=== PATIENT | female | born 1935 | race Caucasian/White ===

== ENCOUNTER → 2020-04-30 | Day surgery (SDC) | payer MEDICARE, OTHER ==
[2020-04-25 10:40] LABS: BASOPHILS % 0.4 % (0.0-1.0); EOSINOPHILS # (AUTO) 0.1 (0.0-0.4); EOSINOPHILS % 1.5 % (0.0-6.0); HEMATOCRIT 36.3 % (34.2-44.1); LYMPHOCYTES # (AUTO) 1.2 (1.0-3.2); LYMPHOCYTES % 16.4 % (18.0-39.1); MEAN CORPUSCULAR HEMOGLOBIN 27.5 pg (28-32); MEAN CORPUSCULAR HGB CONC 33.1 g/dL (31-35); MEAN CORPUSCULAR VOLUME 83.1 fL (81-99); MONOCYTES # (AUTO) 0.6 (0.2-0.8); MONOCYTES % 7.3 % (4.4-11.3); NEUTROPHILS # (AUTO) 5.5 (2.1-6.9); PLATELET COUNT 198 x10e3/uL (140-360); RED BLOOD COUNT 4.37 x10e6/uL (3.6-5.1); RED CELL DISTRIBUTION WIDTH 13.2 % (11.7-14.4)
[~2020-04-30] MED LIST: ARMOUR THYROID60 MG PO; ATROVENT HFA12.9 GM INH; CARVEDILOL12.5 MG PO; ESTRADIOL1 MG PO; FENTANYL CITRATE/PF 100MCG/2 ML INJ ONE; GLYBURIDE5 MG PO; HYOSCYAMINE 0.125 MG TAB ONE; LIDOCAINE HCL 2% LOCAL INJ 5 ML SDV VIAL INJ ONE; LOVASTATIN40 MG PO; PROGESTERONE100 MG PO; PROPOFOL IV EMULSION 10 MG/ML 20 ML VIAL ONE; SYMBICORT 16010.2 GM INH; TRIBENZOR 40-11 EAC1 PO; aspirin PO
[2020-04-30 12:10] VITALS: BP 110/57
--- NOTE | 2020-04-30 14:29 | Operative Report ---
DATE OF PROCEDURE: 04/30/2020 SURGEON: Christian Garcia MD PROCEDURE: Colonoscopy with polypectomy. INDICATIONS FOR COLONOSCOPY: Surveillance colonoscopy, personal history of several large polyps removed on recent colonoscopy. The patient is undergoing a colonoscopy to remove any residual polyps/polypoid tissue. MEDICATIONS: The patient was done under MAC. Please see anesthesiologist's note. PROCEDURE IN DETAIL: With the patient in left lateral decubitus position, a flexible fiberoptic Olympus gastroscope was introduced into the rectum and advanced to the cecum with some difficulty through a sharply angulated and fixed sigmoid colon. The scope was then withdrawn slowly. Whatever was visualized the mucosa overlying the cecum appeared to be within normal limits. An approximately 1.2 cm sessile polypoid lesion was noted in the distal ascending colon that was removed per hot snare polypectomy and site was hemoclipped x2, transverse and descending grossly appeared to be within normal limits. Diverticular disease was noted to involve the sigmoid colon. Two polyps were hot snared from the sigmoid colon. The rectum appeared to be within normal limits. The scope was then retroflexed into the distal rectum and small internal hemorrhoids were noted, none of which was actively bleeding. The scope was then straightened out, it was subsequently withdrawn. The patient tolerated the procedure well. IMPRESSION: 1. Ascending colon polyp, approximately 1.2 cm in size, sessile, hot snared and site was hemoclipped x1. 2. Diverticulosis. 3. Sigmoid colon polyps x2, hot snared. 4. Internal hemorrhoids, none actively bleeding. PLAN: Follow up histology. Initiate high-fiber, low-fat diet. Initiate high-fiber supplement. Timing of followup colonoscopy pending pathology report. Christian Garcia MD [facility] [place]/MICHAELL /[id number] cc: Carlos Enrique Thurston
== END | disposition home or self-care (01) ==
LOC: OR 07:11
PROVIDERS: ATTEND Internal Medicine Gastroenterology
DX: Z09 Encounter for follow-up examination after completed treatment for conditions other than malignant neoplasm (principal); D12.2 Benign neoplasm of ascending colon; K57.30 Diverticulosis of large intestine without perforation or abscess without bleeding; K56.609 Unspecified intestinal obstruction, unspecified as to partial versus complete obstruction; K64.8 Other hemorrhoids; K21.9 Gastro-esophageal reflux disease without esophagitis; I49.3 Ventricular premature depolarization; J44.9 Chronic obstructive pulmonary disease, unspecified; E11.9 Type 2 diabetes mellitus without complications; I10 Essential (primary) hypertension; E03.9 Hypothyroidism, unspecified; I34.0 Nonrheumatic mitral (valve) insufficiency; E78.5 Hyperlipidemia, unspecified; I83.90 Asymptomatic varicose veins of unspecified lower extremity; M19.90 Unspecified osteoarthritis, unspecified site; M26.609 Unspecified temporomandibular joint disorder, unspecified side; Z01.810 Encounter for preprocedural cardiovascular examination; Z01.812 Encounter for preprocedural laboratory examination; Z11.59 Encounter for screening for other viral diseases; Z79.82 Long term (current) use of aspirin; Z79.84 Long term (current) use of oral hypoglycemic drugs; Z68.31 Body mass index [BMI] 31.0-31.9, adult; Z87.891 Personal history of nicotine dependence
CPT/HCPCS: 36415 ×2; 45385; 82948; 85025; 88305; 93005; J2001; J2704; J3010; U0002; 45378; 45384

== ENCOUNTER → 2021-08-05 | Day surgery (SDC) | payer MEDICARE, OTHER ==
[2021-07-31 13:31] LABS: BASOPHILS % 0.5 % (0.0-1.0); EOSINOPHILS # (AUTO) 0.1 (0.0-0.4); EOSINOPHILS % 0.9 % (0.0-6.0); HEMATOCRIT 36.8 % (34.2-44.1); HEMOGLOBIN 12.2 g/dL (12.0-16.0); LYMPHOCYTES # (AUTO) 1.2 (1.0-3.2); LYMPHOCYTES % 13.6 % (18.0-39.1); MEAN CORPUSCULAR HEMOGLOBIN 29.1 pg (28-32); MEAN CORPUSCULAR HGB CONC 33.2 g/dL (31-35); MEAN CORPUSCULAR VOLUME 87.8 fL (81-99); MONOCYTES # (AUTO) 0.5 (0.2-0.8); MONOCYTES % 6.1 % (4.4-11.3); NEUTROPHILS # (AUTO) 6.7 (2.1-6.9); NEUTROPHILS % 78.5 % (38.7-80.0); PLATELET COUNT 213 x10e3/uL (140-360); RED BLOOD COUNT 4.19 x10e6/uL (3.6-5.1); RED CELL DISTRIBUTION WIDTH 14.1 % (11.7-14.4)
[2021-07-31 13:43] LABS: INR 1.23; PROTHROMBIN TIME 16.5 seconds (11.9-14.5)
[2021-07-31 13:51] LABS: ALBUMIN 4.1 g/dL (3.5-5.0); ALBUMIN/GLOBULIN RATIO 1.8 (0.8-2.0); ANION GAP 14.3 mmol/L (8-16); CALCIUM 8.6 mg/dL (8.4-10.2); CREATININE, SERUM 1.77 mg/dL (0.57-1.11); POTASSIUM 4.3 mmol/L (3.5-5.1)
[~2021-08-05] VITALS: Ht 170.2 cm; Wt 90.7 kg
[~2021-08-05] MED LIST changes: +BENICAR HCT 401 EAC1 PO; +BENZOCAINE 20% SPR 60 ML CAN ONE; +DIGOXIN125 MCG PO; +DILTIAZEM 24HR120 M1 PO; +DOXAZOSIN MESYLA2 MG PO; +FLUMAZENIL 0.5MG/ 5ML VIAL ONE; -HYOSCYAMINE 0.125 MG TAB ONE; -LIDOCAINE HCL 2% LOCAL INJ 5 ML SDV VIAL INJ ONE; +MEPERIDINE HCL INJ 25 MG/ML VIAL ONE; +MIDAZOLAM HCL 2 MG/2 ML VIAL ONE; +NALOXONE HCL INJ 0.4 MG/ML AMP ONE; +PANTOPRAZOLE SO40 MG PO; +PROMETHAZINE HCL (IM) 25 MG/ML VIAL IM ONE; -PROPOFOL IV EMULSION 10 MG/ML 20 ML VIAL ONE; +SODIUM CHLORIDE 0.9% 1000ML 1,000 ML ONE; +THYROXINE PO; +XARELTO10 MG PO
[2021-08-05 11:20] VITALS: BP 147/58
[2021-08-05 13:10] VITALS: BP 139/66
[2021-08-05 13:25] VITALS: BP 124/68
[2021-08-05 13:40] VITALS: BP 114/62
== END | disposition home or self-care (01) ==
LOC: CATH LAB 11:29
PROVIDERS: ATTEND Internal Medicine Interventional Cardiology
DX: I48.19 Other persistent atrial fibrillation (principal); I35.8 Other nonrheumatic aortic valve disorders; I34.0 Nonrheumatic mitral (valve) insufficiency; I07.1 Rheumatic tricuspid insufficiency; I10 Essential (primary) hypertension; E78.5 Hyperlipidemia, unspecified; J44.9 Chronic obstructive pulmonary disease, unspecified; K21.9 Gastro-esophageal reflux disease without esophagitis; Z01.812 Encounter for preprocedural laboratory examination; Z20.822 Contact with and (suspected) exposure to COVID-19; Z79.02 Long term (current) use of antithrombotics/antiplatelets; Z79.899 Other long term (current) drug therapy; Z68.32 Body mass index [BMI] 32.0-32.9, adult
CPT/HCPCS: 36415 ×2; 80053; 82948; 85025; 85610; 93312; 93320; 93325; J2175; J2250; J2310; J2550; J3010; J7030; U0002; 93307; 93355; 99152; 99153

== ENCOUNTER 2021-09-04 13:03 | Inpatient (IN) | payer MEDICARE, OTHER ==
[~2021-09-04] VITALS: Ht 170.2 cm; Wt 64.9 kg
[~2021-09-04 13:03] MED LIST changes: -BENZOCAINE 20% SPR 60 ML CAN ONE; -FENTANYL CITRATE/PF 100MCG/2 ML INJ ONE; -FLUMAZENIL 0.5MG/ 5ML VIAL ONE; -MEPERIDINE HCL INJ 25 MG/ML VIAL ONE; -MIDAZOLAM HCL 2 MG/2 ML VIAL ONE; -NALOXONE HCL INJ 0.4 MG/ML AMP ONE; -PROMETHAZINE HCL (IM) 25 MG/ML VIAL IM ONE; -SODIUM CHLORIDE 0.9% 1000ML 1,000 ML ONE
[2021-09-04] MEDS ORDERED: DIGOXIN INJ 0.25 MG/ML 2 ML AMP IV ONE (14:30)
[2021-09-04 14:46] LABS: BASOPHILS % 0.3 % (0.0-1.0); EOSINOPHILS % 0.3 % (0.0-6.0); HEMATOCRIT 37.5 % (34.2-44.1); HEMOGLOBIN 12.5 g/dL (12.0-16.0); LYMPHOCYTES # (AUTO) 0.9 (1.0-3.2); LYMPHOCYTES % 7.8 % (18.0-39.1); MEAN CORPUSCULAR HEMOGLOBIN 28.5 pg (28-32); MEAN CORPUSCULAR HGB CONC 33.3 g/dL (31-35); MEAN CORPUSCULAR VOLUME 85.4 fL (81-99); MONOCYTES # (AUTO) 0.7 (0.2-0.8); MONOCYTES % 5.7 % (4.4-11.3); NEUTROPHILS % 85.4 % (38.7-80.0); PLATELET COUNT 271 x10e3/uL (140-360); RED BLOOD COUNT 4.39 x10e6/uL (3.6-5.1); RED CELL DISTRIBUTION WIDTH 13.3 % (11.7-14.4)
[2021-09-04 14:53] LABS: INR 2.25; PROTHROMBIN TIME 26.6 seconds (11.9-14.5)
[2021-09-04 14:54] LABS: PARTIAL THROMBOPLASTIN TIME 57.5 seconds (23.8-35.5)
[2021-09-04 15:05] LABS: ALBUMIN 3.7 g/dL (3.5-5.0); ALBUMIN/GLOBULIN RATIO 1.2 (0.8-2.0); CALCIUM 9.2 mg/dL (8.4-10.2); CREATININE, SERUM 1.77 mg/dL (0.57-1.11); MAGNESIUM 1.4 MG/DL (1.3-2.1)
[2021-09-04 15:18] LABS: CREATINE KINASE MB 1.8 ng/mL (0-5.0); THYROID STIMULATING HORMONE 2.965 uIU/mL (0.350-4.940)
[2021-09-04] MEDS ORDERED: DILTIAZEM HCL 5 MG/ML 5 ML VIAL IV STA (15:25)
[2021-09-04] MEDS ORDERED: DILTIAZEM HCL 30 MG TAB PO SCH (17:00)
[2021-09-04] MEDS ORDERED: DILTIAZEM HCL 5 MG/ML 5 ML VIAL IV PRN (17:00)
[2021-09-04] MEDS: SODIUM CHLORIDE 0.9% 1000ML 1,000 ML IV SCH (17:14)
[2021-09-04] MEDS ORDERED: SYNTHROID100 MCG PO (17:21)
[2021-09-04] MEDS ORDERED: PROGESTERONE100 MG PO (17:21)
[2021-09-04] MEDS ORDERED: AMIODARONE HCL200 MG PO (17:21)
[2021-09-04 19:30] VITALS: BP 143/55
[2021-09-04 21:30] VITALS: BP 143/55
[2021-09-04] MEDS: MELATONIN 5 MG TABLET PO PRN (23:57)
[2021-09-05] VITALS (8 sets, daily range): BP systolic 110–150; BP diastolic 59–95
[2021-09-05 06:00] LABS: BASOPHILS % 0.3 % (0.0-1.0); EOSINOPHILS # (AUTO) 0.1 (0.0-0.4); EOSINOPHILS % 0.6 % (0.0-6.0); HEMATOCRIT 32.6 % (34.2-44.1); HEMOGLOBIN 11.1 g/dL (12.0-16.0); LYMPHOCYTES # (AUTO) 1.1 (1.0-3.2); LYMPHOCYTES % 10.4 % (18.0-39.1); MEAN CORPUSCULAR HEMOGLOBIN 28.2 pg (28-32); MONOCYTES # (AUTO) 0.6 (0.2-0.8); MONOCYTES % 5.8 % (4.4-11.3); NEUTROPHILS # (AUTO) 8.5 (2.1-6.9); NEUTROPHILS % 82.4 % (38.7-80.0); PLATELET COUNT 244 x10e3/uL (140-360); RED BLOOD COUNT 3.93 x10e6/uL (3.6-5.1); RED CELL DISTRIBUTION WIDTH 13.3 % (11.7-14.4)
[2021-09-05] MEDS ORDERED: BUDESONIDE-FO10.2 G1 INH (06:06)
[2021-09-05] MEDS ORDERED: SUCRALFATE1 GM PO (06:06)
[2021-09-05] MEDS: SODIUM CHLORIDE 0.9% 1000ML 1,000 ML IV SCH (06:18)
[2021-09-05 06:22] LABS: ALBUMIN/GLOBULIN RATIO 1.2 (0.8-2.0); ANION GAP 13.5 mmol/L (8-16); CALCIUM 8.2 mg/dL (8.4-10.2); CHOL/HDL RATIO 2.5 (3.0-3.6); CREATININE, SERUM 1.54 mg/dL (0.57-1.11); POTASSIUM 3.5 mmol/L (3.5-5.1)
[2021-09-05 06:42] LABS: CREATINE KINASE 61 IU/L (29-168)
[2021-09-05] MEDS: RIVAROXABAN 15 MG TABLET PO SCH (11:06)
[2021-09-05] MEDS: DILTIAZEM HCL ER 120 MG CAP PO SCH (14:00)
[2021-09-05] MEDS: AMIODARONE HCL 200 MG TAB PO SCH (14:00)
[2021-09-05] MEDS ORDERED: DOXAZOSIN MESYLATE 2 MG TAB PO SCH (14:00)
[2021-09-05 14:50] LABS: CREATINE KINASE MB 1.5 ng/mL (0-5.0)
[2021-09-05] MEDS: IPRATROPIUM BROMIDE INHALER 12.9 GM INH INH SCH ×2 (17:27→19:00)
[2021-09-05] MEDS: BUDESONIDE/FORMOTEROL 160/4.5MCG INHALER INH SCH (19:00)
[2021-09-05] MEDS: MELATONIN 5 MG TABLET PO PRN (21:13)
[2021-09-06] VITALS: BP 137/80
[2021-09-06 05:08] LABS: BASOPHILS % 0.4 % (0.0-1.0); EOSINOPHILS # (AUTO) 0.2 (0.0-0.4); EOSINOPHILS % 1.8 % (0.0-6.0); HEMATOCRIT 32.5 % (34.2-44.1); HEMOGLOBIN 11.1 g/dL (12.0-16.0); LYMPHOCYTES # (AUTO) 1.4 (1.0-3.2); LYMPHOCYTES % 14.7 % (18.0-39.1); MEAN CORPUSCULAR HGB CONC 34.2 g/dL (31-35); MEAN CORPUSCULAR VOLUME 84.9 fL (81-99); MONOCYTES # (AUTO) 0.7 (0.2-0.8); NEUTROPHILS # (AUTO) 7.3 (2.1-6.9); NEUTROPHILS % 75.6 % (38.7-80.0); PLATELET COUNT 222 x10e3/uL (140-360); RED BLOOD COUNT 3.83 x10e6/uL (3.6-5.1); RED CELL DISTRIBUTION WIDTH 13.6 % (11.7-14.4)
[2021-09-06 05:54] LABS: ANION GAP 14.7 mmol/L (8-16); CALCIUM 8.6 mg/dL (8.4-10.2); CREATININE, SERUM 1.59 mg/dL (0.57-1.11); POTASSIUM 3.7 mmol/L (3.5-5.1)
[2021-09-06] MEDS ORDERED: LEVOTHYROXINE SODIUM 100 MCG TAB PO SCH (06:00)
[2021-09-06 06:05] VITALS: BP 105/52
[2021-09-06 07:00] VITALS: BP 127/61
[2021-09-06] MEDS: IPRATROPIUM BROMIDE INHALER 12.9 GM INH INH SCH (07:00)
[2021-09-06] MEDS: BUDESONIDE/FORMOTEROL 160/4.5MCG INHALER INH SCH (07:00)
[2021-09-06 08:59] VITALS: BP 105/52
[2021-09-06] MEDS ORDERED: SIMVASTATIN 20 MG TAB PO SCH ×2 (09:00→21:00)
[2021-09-06] MEDS ORDERED: PANTOPRAZOLE SOD 40 MG TABEC PO SCH (09:00)
[2021-09-06] MEDS: DILTIAZEM HCL ER 120 MG CAP PO SCH (09:16)
[2021-09-06] MEDS: AMIODARONE HCL 200 MG TAB PO SCH (09:16)
[2021-09-06] MEDS: RIVAROXABAN 15 MG TABLET PO SCH (09:17)
[2021-09-06] MEDS ORDERED: SODIUM CHLORIDE 0.9% 1000ML 1,000 ML IV SCH (11:00)
[2021-09-06 11:30] VITALS: BP 112/99
[2021-09-06 13:26] LABS: CREATINE KINASE MB 1.6 ng/mL (0-5.0)
[2021-09-06] MEDS ORDERED: SIMVASTATIN40 MG PO (15:10)
[2021-09-06] MEDS ORDERED: AMIODARONE HCL200 MG PO (15:10)
[2021-09-06] MEDS ORDERED: MAGNESIUM SULFATE 2GM/50ML 50 ML IV ONE ×2 (15:15→16:00)
[2021-09-06] MEDS ORDERED: MAGNESIUM OXIDE 400 MG TAB PO ONE (16:00)
[2021-09-06] MEDS ORDERED: AMIODARONE HCL 200 MG TAB PO SCH (17:00)
[2021-09-06 17:02] VITALS: BP 128/58
[2021-09-06] MEDS ORDERED: SIMVASTATIN 40 MG TAB PO SCH (21:00)
== END 2021-09-06 18:34 | disposition home or self-care (01) | DRG 309 ==
LOC: ER 13:30 → ERHOLD 16:39 → MED/SURG 19:30
PROVIDERS: ADMIT Internal Medicine; ATTEND Internal Medicine
DX: I48.19 Other persistent atrial fibrillation (principal); E87.1 Hypo-osmolality and hyponatremia; I48.92 Unspecified atrial flutter; I10 Essential (primary) hypertension; E11.9 Type 2 diabetes mellitus without complications; I48.91 Unspecified atrial fibrillation; Z88.8 Allergy status to other drugs, medicaments and biological substances; E78.5 Hyperlipidemia, unspecified; E03.9 Hypothyroidism, unspecified; I65.21 Occlusion and stenosis of right carotid artery; Z20.822 Contact with and (suspected) exposure to COVID-19
CPT/HCPCS: 36415; 70450; 71045; 80048; 80053; 80061; 82550; 82553; 82948; 83036; 83735; 83880; 84443; 84484; 85025; 85610; 85730; 93005; 94799; 96360; 99284; J1160; J3475; J7030; U0002

== ENCOUNTER 2021-09-12 06:25 | Inpatient (IN) | payer MEDICARE, OTHER ==
[2021-09-11 16:12] LABS: BASOPHILS # (AUTO) 0.1 (0.0-0.1); BASOPHILS % 0.2 % (0.0-1.0); HEMATOCRIT 37.2 % (34.2-44.1); HEMOGLOBIN 12.4 g/dL (12.0-16.0); LYMPHOCYTES # (AUTO) 0.5 (1.0-3.2); LYMPHOCYTES % 1.9 % (18.0-39.1); MEAN CORPUSCULAR HEMOGLOBIN 28.2 pg (28-32); MEAN CORPUSCULAR HGB CONC 33.3 g/dL (31-35); MEAN CORPUSCULAR VOLUME 84.7 fL (81-99); MONOCYTES # (AUTO) 1.3 (0.2-0.8); MONOCYTES % 5.1 % (4.4-11.3); NEUTROPHILS # (AUTO) 24.2 (2.1-6.9); PLATELET COUNT 353 x10e3/uL (140-360); RED BLOOD COUNT 4.39 x10e6/uL (3.6-5.1); RED CELL DISTRIBUTION WIDTH 13.6 % (11.7-14.4)
[2021-09-11 16:40] LABS: ALBUMIN/GLOBULIN RATIO 0.8 (0.8-2.0); CALCIUM 9.1 mg/dL (8.4-10.2); CREATININE, SERUM 1.62 mg/dL (0.57-1.11)
[2021-09-12] VITALS (14 sets, daily range): BP systolic 116–159; BP diastolic 63–94
[~2021-09-12] VITALS: Ht 170.2 cm; Wt 87.5 kg
[~2021-09-12 06:25] MED LIST changes: +AMIODARONE HCL200 MG PO; +BUDESONIDE-FO10.2 G1 INH; +SIMVASTATIN40 MG PO; +SUCRALFATE1 GM PO; +SYNTHROID100 MCG PO
[2021-09-12] MEDS ORDERED: SODIUM CHLORIDE 0.9% 1000ML 1,000 ML ONE (07:36)
[2021-09-12] MEDS ORDERED: BENZOCAINE 20% SPR 60 ML CAN ONE (07:36)
[2021-09-12] MEDS ORDERED: ADVAIR HFA 115-12 GM (07:37)
[2021-09-12] MEDS ORDERED: DIGOXIN125 MCG PO (07:37)
[2021-09-12] MEDS ORDERED: PROMETRIUM100 MG (07:37)
[2021-09-12] MEDS ORDERED: ATROVENT HFA12.9 GM INH (07:37)
[2021-09-12] MEDS ORDERED: SYMBICORT 16010.2 GM INH (07:37)
[2021-09-12] MEDS ORDERED: CARVEDILOL12.5 MG PO (07:37)
[2021-09-12] MEDS ORDERED: LIDOCAINE HCL 2% LOCAL INJ 5 ML SDV VIAL INJ ONE (12:04)
[2021-09-12] MEDS ORDERED: POVIDONE IODINE 0.05% 0.05 % ML PO ONE (12:04)
[2021-09-12] MEDS ORDERED: PROPOFOL IV EMULSION 10 MG/ML 20 ML VIAL ONE (12:04)
[2021-09-12] MEDS: LEVOFLOXACIN 500MG/D5W 100ML 100 ML IV SCH (14:20)
[2021-09-12] MEDS: ALBUTEROL/IPRATROPIUM 3 ML NEB NEB SCH ×2 (16:00→19:45)
[2021-09-12] MEDS: CEFEPIME 1 GM in SODIUM CHLORIDE 0.9% 50ML 50 ML IV SCH (16:07)
[2021-09-12 16:10] LABS: BASOPHILS % 0.1 % (0.0-1.0); EOSINOPHILS # (AUTO) 0.1 (0.0-0.4); EOSINOPHILS % 0.7 % (0.0-6.0); HEMATOCRIT 31.4 % (34.2-44.1); HEMOGLOBIN 10.6 g/dL (12.0-16.0); LYMPHOCYTES # (AUTO) 0.7 (1.0-3.2); LYMPHOCYTES % 4.1 % (18.0-39.1); MEAN CORPUSCULAR HEMOGLOBIN 28.9 pg (28-32); MEAN CORPUSCULAR HGB CONC 33.8 g/dL (31-35); MEAN CORPUSCULAR VOLUME 85.6 fL (81-99); MONOCYTES # (AUTO) 1.1 (0.2-0.8); MONOCYTES % 6.3 % (4.4-11.3); NEUTROPHILS # (AUTO) 15.9 (2.1-6.9); NEUTROPHILS % 88.1 % (38.7-80.0); PLATELET COUNT 319 x10e3/uL (140-360); RED BLOOD COUNT 3.67 x10e6/uL (3.6-5.1); RED CELL DISTRIBUTION WIDTH 13.8 % (11.7-14.4)
[2021-09-12 16:24] LABS: ALBUMIN 2.5 g/dL (3.5-5.0); ALBUMIN/GLOBULIN RATIO 0.8 (0.8-2.0); ANION GAP 14.7 mmol/L (8-16); CALCIUM 8.4 mg/dL (8.4-10.2); CREATININE, SERUM 1.6 mg/dL (0.57-1.11); POTASSIUM 3.7 mmol/L (3.5-5.1)
[2021-09-12] MEDS ORDERED: SODIUM CHLORIDE 0.9% 1000ML 1,000 ML IV ONE (17:15)
[2021-09-12] MEDS: INSULIN LISPRO 100 UNIT/1 ML 3ML VIAL SQ SCH (20:58)
[2021-09-12] MEDS: SIMVASTATIN 20 MG TAB PO SCH (21:00)
[2021-09-12] MEDS: AMIODARONE HCL 200 MG TAB PO SCH (21:00)
[2021-09-12] MEDS: CARVEDILOL 12.5 MG TAB PO SCH (21:00)
[2021-09-13] VITALS (8 sets, daily range): BP systolic 111–152; BP diastolic 53–80
[2021-09-13] MEDS: ALBUTEROL/IPRATROPIUM 3 ML NEB NEB SCH ×3 (01:08→13:00)
[2021-09-13] MEDS: LEVOTHYROXINE SODIUM 100 MCG TAB PO SCH (05:17)
[2021-09-13 05:30] LABS: BASOPHILS % 0.1 % (0.0-1.0); EOSINOPHILS % 0.1 % (0.0-6.0); HEMATOCRIT 29.1 % (34.2-44.1); HEMOGLOBIN 9.6 g/dL (12.0-16.0); LYMPHOCYTES # (AUTO) 0.5 (1.0-3.2); LYMPHOCYTES % 2.5 % (18.0-39.1); MEAN CORPUSCULAR HEMOGLOBIN 28.2 pg (28-32); MEAN CORPUSCULAR VOLUME 85.3 fL (81-99); MONOCYTES # (AUTO) 0.8 (0.2-0.8); MONOCYTES % 4.3 % (4.4-11.3); NEUTROPHILS # (AUTO) 17.5 (2.1-6.9); NEUTROPHILS % 92.2 % (38.7-80.0); PLATELET COUNT 296 x10e3/uL (140-360); RED BLOOD COUNT 3.41 x10e6/uL (3.6-5.1); RED CELL DISTRIBUTION WIDTH 13.8 % (11.7-14.4)
[2021-09-13 05:52] LABS: ANION GAP 15.3 mmol/L (8-16); CALCIUM 8.3 mg/dL (8.4-10.2); CREATININE, SERUM 1.59 mg/dL (0.57-1.11); POTASSIUM 4.3 mmol/L (3.5-5.1)
[2021-09-13] MEDS ORDERED: IPRATROPIUM BROMIDE INHALER 12.9 GM INH INH SCH (07:00)
[2021-09-13] MEDS: INSULIN LISPRO 100 UNIT/1 ML 3ML VIAL SQ SCH ×4 (07:30→21:00)
[2021-09-13] MEDS: BUDESONIDE/FORMOTEROL 160/4.5MCG INHALER INH SCH ×2 (08:52→19:15)
[2021-09-13] MEDS: GLYBURIDE 2.5 MG TAB PO SCH (08:55)
[2021-09-13] MEDS: DIGOXIN 0.125 MG TAB PO SCH (08:55)
[2021-09-13] MEDS: AMIODARONE HCL 200 MG TAB PO SCH ×2 (08:56→22:12)
[2021-09-13] MEDS: ESTRADIOL 1 MG TAB PO SCH (08:56)
[2021-09-13] MEDS: DILTIAZEM HCL ER 120 MG CAP PO SCH (08:56)
[2021-09-13] MEDS: CARVEDILOL 12.5 MG TAB PO SCH ×2 (08:56→22:12)
[2021-09-13] MEDS: PANTOPRAZOLE SOD 40 MG TABEC PO SCH (08:56)
[2021-09-13] MEDS: PROGESTERONE MICRONIZED 100 MG PO SCH (08:56)
[2021-09-13] MEDS: RIVAROXABAN 15 MG TABLET PO SCH (08:57)
[2021-09-13] MEDS: LEVOFLOXACIN 500MG/D5W 100ML 100 ML IV SCH (13:09)
[2021-09-13] MEDS ORDERED: SODIUM CHLORIDE 0.9% 250ML 250 ML ONE (15:48)
[2021-09-13] MEDS: CEFEPIME 1 GM in SODIUM CHLORIDE 0.9% 50ML 50 ML IV SCH (15:50)
[2021-09-13] MEDS ORDERED: ALBUTEROL/IPRATROPIUM 3 ML NEB NEB PRN (16:00)
[2021-09-13] MEDS ORDERED: ALBUTEROL SULFATE HFA 8GM INHALATION AEROSOL INH PRN (16:00)
[2021-09-13] MEDS: IPRATROPIUM BROMIDE INHALER 12.9 GM INH INH SCH ×2 (16:05→19:10)
[2021-09-13] MEDS: SIMVASTATIN 20 MG TAB PO SCH (22:12)
[2021-09-14] VITALS (8 sets, daily range): BP systolic 106–133; BP diastolic 59–66
[2021-09-14] MEDS: IPRATROPIUM BROMIDE INHALER 12.9 GM INH INH SCH ×4 (01:10→18:40)
[2021-09-14 04:58] LABS: BASOPHILS % 0.1 % (0.0-1.0); EOSINOPHILS # (AUTO) 0.1 (0.0-0.4); EOSINOPHILS % 0.5 % (0.0-6.0); HEMATOCRIT 26.8 % (34.2-44.1); HEMOGLOBIN 8.9 g/dL (12.0-16.0); LYMPHOCYTES # (AUTO) 0.9 (1.0-3.2); LYMPHOCYTES % 5.7 % (18.0-39.1); MEAN CORPUSCULAR HEMOGLOBIN 27.9 pg (28-32); MEAN CORPUSCULAR HGB CONC 33.2 g/dL (31-35); MONOCYTES % 6.4 % (4.4-11.3); NEUTROPHILS # (AUTO) 13.4 (2.1-6.9); NEUTROPHILS % 86.6 % (38.7-80.0); PLATELET COUNT 315 x10e3/uL (140-360); RED BLOOD COUNT 3.19 x10e6/uL (3.6-5.1); RED CELL DISTRIBUTION WIDTH 13.7 % (11.7-14.4)
[2021-09-14 05:21] LABS: ALBUMIN 2.3 g/dL (3.5-5.0); ALBUMIN/GLOBULIN RATIO 0.8 (0.8-2.0); ANION GAP 13.1 mmol/L (8-16); CALCIUM 8.5 mg/dL (8.4-10.2); CREATININE, SERUM 1.55 mg/dL (0.57-1.11); POTASSIUM 4.1 mmol/L (3.5-5.1)
[2021-09-14] MEDS: LEVOTHYROXINE SODIUM 100 MCG TAB PO SCH (06:24)
[2021-09-14] MEDS: BUDESONIDE/FORMOTEROL 160/4.5MCG INHALER INH SCH (07:10)
[2021-09-14] MEDS: GLYBURIDE 2.5 MG TAB PO SCH (07:30)
[2021-09-14] MEDS: INSULIN LISPRO 100 UNIT/1 ML 3ML VIAL SQ SCH ×4 (07:30→20:23)
[2021-09-14] MEDS: PANTOPRAZOLE SOD 40 MG TABEC PO SCH (08:22)
[2021-09-14] MEDS: ESTRADIOL 1 MG TAB PO SCH (08:22)
[2021-09-14] MEDS: RIVAROXABAN 15 MG TABLET PO SCH (08:22)
[2021-09-14] MEDS: DIGOXIN 0.125 MG TAB PO SCH (08:22)
[2021-09-14] MEDS: PROGESTERONE MICRONIZED 100 MG PO SCH (08:22)
[2021-09-14] MEDS: AMIODARONE HCL 200 MG TAB PO SCH ×2 (08:25→20:22)
[2021-09-14] MEDS: CARVEDILOL 12.5 MG TAB PO SCH ×2 (08:25→20:23)
[2021-09-14] MEDS: DILTIAZEM HCL ER 120 MG CAP PO SCH (08:25)
[2021-09-14] MEDS ORDERED: GUAIFENESIN/CODEINE 5 ML LIQD PO PRN (11:00)
[2021-09-14] MEDS: LEVOFLOXACIN 500MG/D5W 100ML 100 ML IV SCH (13:33)
[2021-09-14] MEDS: SODIUM CHLORIDE 0.9% 1000ML 1,000 ML IV SCH ×2 (13:34→23:15)
[2021-09-14] MEDS: CEFEPIME 1 GM in SODIUM CHLORIDE 0.9% 50ML 50 ML IV SCH (17:38)
[2021-09-14] MEDS: SIMVASTATIN 20 MG TAB PO SCH (20:22)
[2021-09-15] VITALS (7 sets, daily range): BP systolic 112–157; BP diastolic 66–76
[2021-09-15 05:55] LABS: BASOPHILS % 0.1 % (0.0-1.0); EOSINOPHILS % 0.3 % (0.0-6.0); HEMATOCRIT 27.9 % (34.2-44.1); HEMOGLOBIN 9.1 g/dL (12.0-16.0); LYMPHOCYTES # (AUTO) 0.8 (1.0-3.2); LYMPHOCYTES % 5.2 % (18.0-39.1); MEAN CORPUSCULAR HEMOGLOBIN 28.1 pg (28-32); MEAN CORPUSCULAR HGB CONC 32.6 g/dL (31-35); MEAN CORPUSCULAR VOLUME 86.1 fL (81-99); MONOCYTES # (AUTO) 0.9 (0.2-0.8); MONOCYTES % 5.8 % (4.4-11.3); NEUTROPHILS # (AUTO) 13.1 (2.1-6.9); NEUTROPHILS % 87.7 % (38.7-80.0); PLATELET COUNT 334 x10e3/uL (140-360); RED BLOOD COUNT 3.24 x10e6/uL (3.6-5.1); RED CELL DISTRIBUTION WIDTH 13.8 % (11.7-14.4)
[2021-09-15 06:14] LABS: ALBUMIN 2.3 g/dL (3.5-5.0); ALBUMIN/GLOBULIN RATIO 0.7 (0.8-2.0); ANION GAP 13.2 mmol/L (8-16); CALCIUM 8.4 mg/dL (8.4-10.2); CREATININE, SERUM 1.39 mg/dL (0.57-1.11); POTASSIUM 4.2 mmol/L (3.5-5.1)
[2021-09-15] MEDS: LEVOTHYROXINE SODIUM 100 MCG TAB PO SCH (06:16)
[2021-09-15] MEDS: BUDESONIDE/FORMOTEROL 160/4.5MCG INHALER INH SCH (07:02)
[2021-09-15] MEDS: IPRATROPIUM BROMIDE INHALER 12.9 GM INH INH SCH ×4 (07:02→19:53)
[2021-09-15] MEDS: INSULIN LISPRO 100 UNIT/1 ML 3ML VIAL SQ SCH ×4 (07:30→20:40)
[2021-09-15] MEDS: SODIUM CHLORIDE 0.9% 1000ML 1,000 ML IV SCH (09:15)
[2021-09-15] MEDS: GLYBURIDE 2.5 MG TAB PO SCH (09:37)
[2021-09-15] MEDS: PANTOPRAZOLE SOD 40 MG TABEC PO SCH (09:38)
[2021-09-15] MEDS: SODIUM CHLORIDE 1 GM TAB PO SCH (09:38)
[2021-09-15] MEDS: DILTIAZEM HCL ER 120 MG CAP PO SCH (09:38)
[2021-09-15] MEDS: CARVEDILOL 12.5 MG TAB PO SCH ×2 (09:38→20:40)
[2021-09-15] MEDS: AMIODARONE HCL 200 MG TAB PO SCH ×2 (09:38→20:39)
[2021-09-15] MEDS: RIVAROXABAN 15 MG TABLET PO SCH (09:38)
[2021-09-15] MEDS: PROGESTERONE MICRONIZED 100 MG PO SCH (09:38)
[2021-09-15] MEDS: ESTRADIOL 1 MG TAB PO SCH (09:38)
[2021-09-15] MEDS ORDERED: FUROSEMIDE INJ 10 MG/ML 4 ML VIAL IV NR (13:00)
[2021-09-15] MEDS: LEVOFLOXACIN 500MG/D5W 100ML 100 ML IV SCH (14:00)
[2021-09-15] MEDS: CEFEPIME 1 GM in SODIUM CHLORIDE 0.9% 50ML 50 ML IV SCH (18:14)
[2021-09-15] MEDS: DEXTROSE 50% SYRINGE 50 ML IV PRN (20:40)
[2021-09-15] MEDS: SIMVASTATIN 20 MG TAB PO SCH (20:40)
[2021-09-16] VITALS (10 sets, daily range): BP systolic 129–157; BP diastolic 49–82
[2021-09-16] MEDS: IPRATROPIUM BROMIDE INHALER 12.9 GM INH INH SCH ×4 (02:15→19:39)
[2021-09-16 05:26] LABS: BASOPHILS % 0.2 % (0.0-1.0); EOSINOPHILS # (AUTO) 0.1 (0.0-0.4); EOSINOPHILS % 0.4 % (0.0-6.0); HEMATOCRIT 29.8 % (34.2-44.1); HEMOGLOBIN 9.6 g/dL (12.0-16.0); LYMPHOCYTES % 7.8 % (18.0-39.1); MEAN CORPUSCULAR HGB CONC 32.2 g/dL (31-35); MEAN CORPUSCULAR VOLUME 86.9 fL (81-99); MONOCYTES # (AUTO) 0.9 (0.2-0.8); MONOCYTES % 7.4 % (4.4-11.3); NEUTROPHILS # (AUTO) 10.6 (2.1-6.9); PLATELET COUNT 384 x10e3/uL (140-360); RED BLOOD COUNT 3.43 x10e6/uL (3.6-5.1); RED CELL DISTRIBUTION WIDTH 13.8 % (11.7-14.4)
[2021-09-16 05:31] LABS: ANION GAP 11.5 mmol/L (8-16); CREATININE, SERUM 1.35 mg/dL (0.57-1.11); POTASSIUM 4.5 mmol/L (3.5-5.1)
[2021-09-16] MEDS: LEVOTHYROXINE SODIUM 100 MCG TAB PO SCH (05:40)
[2021-09-16 05:45] LABS: CALCIUM 8.6 mg/dL (8.4-10.2)
[2021-09-16] MEDS: INSULIN LISPRO 100 UNIT/1 ML 3ML VIAL SQ SCH ×4 (07:30→20:34)
[2021-09-16] MEDS: AMIODARONE HCL 200 MG TAB PO SCH ×2 (09:00→20:33)
[2021-09-16] MEDS: DILTIAZEM HCL ER 120 MG CAP PO SCH (09:00)
[2021-09-16] MEDS: PROGESTERONE MICRONIZED 100 MG PO SCH (09:00)
[2021-09-16] MEDS: BUDESONIDE/FORMOTEROL 160/4.5MCG INHALER INH SCH (09:13)
[2021-09-16] MEDS: GLYBURIDE 2.5 MG TAB PO SCH (09:47)
[2021-09-16] MEDS: ESTRADIOL 1 MG TAB PO SCH (09:49)
[2021-09-16] MEDS: CARVEDILOL 12.5 MG TAB PO SCH ×2 (09:49→20:33)
[2021-09-16] MEDS: PANTOPRAZOLE SOD 40 MG TABEC PO SCH (09:50)
[2021-09-16] MEDS: SODIUM CHLORIDE 1 GM TAB PO SCH (09:50)
[2021-09-16] MEDS: RIVAROXABAN 15 MG TABLET PO SCH (09:50)
[2021-09-16 12:09] LABS: OSMOLALITY,SERUM OSMOMETER 261 mOsmol/kg (280-301)
[2021-09-16] MEDS ORDERED: LEVOFLOXACIN 500 MG TAB PO SCH (14:00)
[2021-09-16] MEDS: CEFEPIME 1 GM in SODIUM CHLORIDE 0.9% 50ML 50 ML IV SCH (16:34)
[2021-09-16] MEDS: SIMVASTATIN 20 MG TAB PO SCH (20:33)
[2021-09-17] MEDS: IPRATROPIUM BROMIDE INHALER 12.9 GM INH INH SCH ×4 (01:09→14:04)
[2021-09-17] MEDS: DEXTROSE 50% SYRINGE 50 ML IV PRN (03:08)
[2021-09-17 04:33] VITALS: BP 139/84
[2021-09-17] MEDS: LEVOTHYROXINE SODIUM 100 MCG TAB PO SCH (05:41)
[2021-09-17 06:10] LABS: BASOPHILS % 0.1 % (0.0-1.0); EOSINOPHILS % 0.2 % (0.0-6.0); HEMATOCRIT 29.7 % (34.2-44.1); HEMOGLOBIN 9.7 g/dL (12.0-16.0); LYMPHOCYTES # (AUTO) 0.7 (1.0-3.2); LYMPHOCYTES % 6.6 % (18.0-39.1); MEAN CORPUSCULAR HGB CONC 32.7 g/dL (31-35); MEAN CORPUSCULAR VOLUME 85.8 fL (81-99); MONOCYTES # (AUTO) 0.7 (0.2-0.8); MONOCYTES % 6.7 % (4.4-11.3); NEUTROPHILS # (AUTO) 9.2 (2.1-6.9); NEUTROPHILS % 84.1 % (38.7-80.0); PLATELET COUNT 333 x10e3/uL (140-360); RED BLOOD COUNT 3.46 x10e6/uL (3.6-5.1); RED CELL DISTRIBUTION WIDTH 13.8 % (11.7-14.4)
[2021-09-17 06:46] LABS: ANION GAP 8.3 mmol/L (8-16); CALCIUM 8.4 mg/dL (8.4-10.2); CREATININE, SERUM 1.31 mg/dL (0.57-1.11); MAGNESIUM 1.6 MG/DL (1.3-2.1); PHOSPHORUS 3.5 MG/DL (2.3-4.7); POTASSIUM 4.3 mmol/L (3.5-5.1)
[2021-09-17] MEDS: INSULIN LISPRO 100 UNIT/1 ML 3ML VIAL SQ SCH ×2 (07:30→11:03)
[2021-09-17 07:42] VITALS: BP 135/70
[2021-09-17 08:13] VITALS: BP 135/70
[2021-09-17] MEDS: PROGESTERONE MICRONIZED 100 MG PO SCH (09:00)
[2021-09-17] MEDS: DILTIAZEM HCL ER 120 MG CAP PO SCH (09:00)
[2021-09-17] MEDS: AMIODARONE HCL 200 MG TAB PO SCH (09:00)
[2021-09-17] MEDS: CARVEDILOL 12.5 MG TAB PO SCH (09:05)
[2021-09-17] MEDS: ESTRADIOL 1 MG TAB PO SCH (09:06)
[2021-09-17] MEDS: SODIUM CHLORIDE 1 GM TAB PO SCH (09:06)
[2021-09-17] MEDS: RIVAROXABAN 15 MG TABLET PO SCH (09:06)
[2021-09-17] MEDS: PANTOPRAZOLE SOD 40 MG TABEC PO SCH (09:06)
[2021-09-17] MEDS: BUDESONIDE/FORMOTEROL 160/4.5MCG INHALER INH SCH (10:48)
[2021-09-17 11:26] VITALS: BP 147/61
[2021-09-17] MEDS ORDERED: SODIUM CHLORIDE1 GM PO (12:24)
[2021-09-17] MEDS ORDERED: Levofloxacin PO (12:36)
[2021-09-17 12:44] LABS: ANION GAP 12.5 mmol/L (8-16); CALCIUM 8.4 mg/dL (8.4-10.2); CREATININE, SERUM 1.2 mg/dL (0.57-1.11); POTASSIUM 4.5 mmol/L (3.5-5.1)
== END 2021-09-17 14:38 | disposition home or self-care (01) | DRG 308 ==
LOC: OR 06:25 → CATH LAB V 14:46 → MED/SURG2 15:25
PROVIDERS: ADMIT Internal Medicine; ATTEND Internal Medicine
PROC: B24BZZ4 Ultrasonography of Heart with Aorta, Transesophageal (ICD-10-PCS; principal; 2021-09-12)
PROC: 5A2204Z Restoration of Cardiac Rhythm, Single (ICD-10-PCS; 2021-09-12)
DX: I48.92 Unspecified atrial flutter (principal); J18.9 Pneumonia, unspecified organism; N17.9 Acute kidney failure, unspecified; J44.0 Chronic obstructive pulmonary disease with (acute) lower respiratory infection; J44.1 Chronic obstructive pulmonary disease with (acute) exacerbation; E87.1 Hypo-osmolality and hyponatremia; E11.65 Type 2 diabetes mellitus with hyperglycemia; I48.0 Paroxysmal atrial fibrillation; K21.9 Gastro-esophageal reflux disease without esophagitis; I13.10 Hypertensive heart and chronic kidney disease without heart failure, with stage 1 through stage 4 chronic kidney disease, or unspecified chronic kidney disease; N18.30 Chronic kidney disease, stage 3 unspecified; E11.22 Type 2 diabetes mellitus with diabetic chronic kidney disease; Z82.49 Family history of ischemic heart disease and other diseases of the circulatory system
CPT/HCPCS: 36415; 71045; 80048; 80053; 82948; 83605; 83735; 83930; 83935; 84100; 84443; 85025; 87040; 93312; 94640; 94799; 96376; J0692; J1956; J2001; J7030; J7050; J7799; U0002

== ENCOUNTER 2021-11-16 08:43 | Emergency (ER) | payer MEDICARE, OTHER ==
[~2021-11-16] VITALS: Ht 170.2 cm; Wt 87.5 kg
[~2021-11-16 08:43] MED LIST changes: +ADVAIR HFA 115-12 GM; +Levofloxacin PO; +PROMETRIUM100 MG; +SODIUM CHLORIDE1 GM PO
[2021-11-16 09:03] LABS: BASOPHILS % 0.2 % (0.0-1.0); EOSINOPHILS # (AUTO) 0.1 (0.0-0.4); EOSINOPHILS % 0.5 % (0.0-6.0); HEMATOCRIT 33.1 % (34.2-44.1); HEMOGLOBIN 11.1 g/dL (12.0-16.0); LYMPHOCYTES # (AUTO) 0.7 (1.0-3.2); LYMPHOCYTES % 4.9 % (18.0-39.1); MEAN CORPUSCULAR HEMOGLOBIN 29.2 pg (28-32); MEAN CORPUSCULAR HGB CONC 33.5 g/dL (31-35); MEAN CORPUSCULAR VOLUME 87.1 fL (81-99); MONOCYTES # (AUTO) 0.9 (0.2-0.8); MONOCYTES % 6.8 % (4.4-11.3); NEUTROPHILS % 87.1 % (38.7-80.0); PLATELET COUNT 214 x10e3/uL (140-360); RED CELL DISTRIBUTION WIDTH 15.7 % (11.7-14.4)
[2021-11-16 09:10] LABS: INR 1.52; PROTHROMBIN TIME 19.6 seconds (11.9-14.5)
[2021-11-16 09:11] LABS: PARTIAL THROMBOPLASTIN TIME 43.2 seconds (23.8-35.5)
[2021-11-16 10:53] LABS: ALANINE AMINOTRANSFERASE 25 IU/L (0-55); ANION GAP 13.8 mmol/L (8-16); BLOOD UREA NITROGEN 36 mg/dL (7-26); BUN/CREATININE RATIO 18 (6-25); CALCIUM 9.2 mg/dL (8.4-10.2); CARBON DIOXIDE 29 mmol/L (22-29); CHLORIDE 95 mmol/L (98-107); CREATINE KINASE 47 IU/L (29-168); CREATININE, SERUM 1.99 mg/dL (0.57-1.11); EST GLOMERULAR FILTRATION RATE 24 ML/MIN (60-); GLUCOSE 163 mg/dL (74-118); MAGNESIUM 1.5 MG/DL (1.3-2.1); POTASSIUM 3.8 mmol/L (3.5-5.1); SODIUM 134 mmol/L (136-145)
[2021-11-16 10:54] LABS: ALBUMIN 3.2 g/dL (3.5-5.0); ALBUMIN/GLOBULIN RATIO 0.9 (0.8-2.0); ALKALINE PHOSPHATASE 54 IU/L (40-150)
[2021-11-16 12:10] LABS: LYMPHOCYTES % (MANUAL) 4 % (19-48); MONOCYTES % (MANUAL) 5 % (3.4-9.0); NEUTROPHILS % (MANUAL) 91 % (40-74)
[2021-11-16 12:13] LABS: HEMATOCRIT 33.2 % (34.2-44.1); HEMOGLOBIN 11.1 g/dL (12.0-16.0); MEAN CORPUSCULAR HEMOGLOBIN 28.9 pg (28-32); MEAN CORPUSCULAR HGB CONC 33.4 g/dL (31-35); MEAN CORPUSCULAR VOLUME 86.5 fL (81-99); PLATELET COUNT 190 x10e3/uL (140-360); RED BLOOD COUNT 3.84 x10e6/uL (3.6-5.1); RED CELL DISTRIBUTION WIDTH 15.5 % (11.7-14.4)
[2021-11-16 12:19] LABS: BAND NEUTROPHILS % (MANUAL) 1 %; LYMPHOCYTES % (MANUAL) 6 % (19-48); MONOCYTES % (MANUAL) 3 % (3.4-9.0); NEUTROPHILS % (MANUAL) 90 % (40-74)
== END 2021-11-16 12:17 | disposition home or self-care (01) ==
LOC: ER 09:10
DX: R05.9 Cough, unspecified (principal); J18.9 Pneumonia, unspecified organism; R07.89 Other chest pain; N18.9 Chronic kidney disease, unspecified; E11.65 Type 2 diabetes mellitus with hyperglycemia; I10 Essential (primary) hypertension; I48.91 Unspecified atrial fibrillation; E03.9 Hypothyroidism, unspecified; Z20.822 Contact with and (suspected) exposure to COVID-19; Z85.51 Personal history of malignant neoplasm of bladder
CPT/HCPCS: 36415; 71045; 80053; 82550; 82553; 83735; 83880; 84484; 85007; 85025; 85027; 85610; 85730; 87040; 93005; 99284; U0002